=== PATIENT | female | born 1970 | race Asian ===

== ENCOUNTER 2017-05-10 17:22 | Emergency (ER) | payer OTHER ==
[2017-05-10 20:16] LABS: Basophils % (Auto) 0.6 % (0.0-1.8); Eosinophils % (Auto) 2.1 % (0.0-4.3); Hematocrit 37.2 % (30.3-42.9); Hemoglobin 12.2 gm/dl (10.1-14.3); Mean Corpuscular HGB Conc 33 % (30-34); Mean Corpuscular Hemoglobin 30 pg (28-32); Mean Corpuscular Volume 92 fl (79-97); Platelet Count 167 K/mm3 (140-440); Red Blood Count 4.03 M/mm3 (3.65-5.03); Red Cell Distribution Width 14.7 % (13.2-15.2); White Blood Count 5.1 K/mm3 (4.5-11.0)
[2017-05-10 20:25] LABS: INR 0.94 (0.87-1.13)
[2017-05-10 20:26] LABS: Partial Thromboplastin Time 28.7 Sec. (24.2-36.6)
[2017-05-10 20:38] LABS: Alanine Aminotransferase 28 units/L (7-56); Albumin 4.3 g/dL (3.9-5); Albumin/Globulin Ratio 1.4 %; Alkaline Phosphatase 79 units/L (35-129); Anion Gap 18 mmol/L; BUN/Creatinine Ratio 15.71; Blood Urea Nitrogen 11 mg/dL (7-17); Calcium 9.4 mg/dL (8.4-10.2); Carbon Dioxide 26 mmol/L (22-30); Chloride 100.3 mmol/L (98-107); Glucose 99 mg/dL (65-100); Lipase 25 units/L (13-60); Potassium 3.8 mmol/L (3.6-5.0); Sodium 140 mmol/L (137-145); Total Protein 7.3 g/dL (6.3-8.2)
[2017-05-11] MEDS ORDERED: PERCOCET 5/325 PO ONE (07:26)
--- NOTE | 2017-05-11 07:30 | Emergency Department Report ---
HPI - General Chief Complaint: Abdominal Pain Time Seen by Provider: 05/11/17 06:52 - HPI HPI: This is a 46-year-old -[place] female presents to the emergency department with complaint of acute on chronic abdominal pain. Patient says that her abdomen is never been right since she had surgery back in 2014 that included a cholecystectomy, common bile duct removal and some type of pancreatic surgery. However for the past month patient says that she has been having pain with eating so she limits her self to about 1 meal per day and very small amounts. She went to see her [employer] consultant, Dr. Delarosa, last week and had a CT scan on Wednesday but says she has not received the results yet. She came into the emergency department today as she says she's been having some diarrhea with some blood in it. She otherwise has a past medical history of hypertension. She is not taken anything for symptoms prior to presentation. No recent travel or sick contacts at home. ED Past Medical Hx - Past Medical History Hx Hypertension: Yes Hx Asthma: No Hx HIV: No - Surgical History Hx Cholecystectomy: Yes Additional Surgical History: common bile duct remove, pancreatic surgery - Social History Smoking Status: Current Every Day Smoker Substance Use Type: None - Medications Home Medications: Home Medications Medication Instructions Recorded Confirmed Last Taken Type Inderal 60 mg PO DAILY 04/26/15 04/26/15 Unknown History PROzac 60 mg PO DAILY 04/26/15 04/26/15 Unknown History clonazePAM 1 mg PO DAILY 04/26/15 04/26/15 Unknown History HYDROcodone/APAP 5-325 [[place] 1 each PO Q6HR PRN #8 tablet 05/11/17 Unknown Rx 5/325] ED Review of Systems ROS: Stated complaint: RETCAL BLEEDING Other details as noted in HPI Comment: All other systems reviewed and negative Constitutional: denies: chills, fever Eyes: denies: eye pain, eye discharge, vision change ENT: denies: ear pain, throat pain Respiratory: denies: cough, shortness of breath, wheezing Cardiovascular: denies: chest pain, palpitations Gastrointestinal: abdominal pain, diarrhea. denies: vomiting, melena Genitourinary: denies: urgency, dysuria, discharge Musculoskeletal: denies: back pain, joint swelling, arthralgia Skin: denies: rash, lesions Neurological: denies: headache, weakness, paresthesias Physical Exam - Physical Exam Vital Signs: Vital Signs 05/10/17 05/11/17 05/11/17 19:45 00:38 06:44 Temperature 98.7 F 98.4 F Pulse Rate 78 73 75 Respiratory 18 18 17 Rate Blood Pressure 120/73 132/84 O2 Sat by Pulse 100 100 99 Oximetry Physical Exam: GENERAL: The patient is well-developed well-nourished. HEENT: Normocephalic. Atraumatic. Extraocular motions are intact. Patient has moist mucous membranes. Pupils equal reactive to light bilaterally. NECK: Supple. Trachea is midline. CHEST/LUNGS: Clear to auscultation. There is no respiratory distress noted. HEART/CARDIOVASCULAR: Regular. There is no tachycardia. There is no gallop rub or murmur. ABDOMEN: Abdomen is soft. There is some tenderness to palpation to the upper quadrants of the abdomen. No guarding rebound tenderness. Patient has normal bowel sounds. There is no abdominal distention. SKIN: Skin is warm and dry. RECTAL: There is nonthrombosed external hemorrhoid at about 5 o'clock position. No gross blood. Stool was negative on guaiac testing. NEURO: The patient is awake, alert, and oriented. The patient is cooperative. The patient has no focal neurologic deficits. The patient has normal speech. MUSCULOSKELETAL: There is no tenderness or deformity. There is no limitation range of motion. There is no evidence of acute injury. ED Course Vital Signs 05/10/17 05/11/17 05/11/17 19:45 00:38 06:44 Temperature 98.7 F 98.4 F Pulse Rate 78 73 75 Respiratory 18 18 17 Rate Blood Pressure 120/73 132/84 O2 Sat by Pulse 100 100 99 Oximetry ED Medical Decision Making - Lab Data Result diagrams: 05/10/17 19:55 05/10/17 19:55 - Radiology Data Radiology results: report reviewed, image reviewed interpreted by me: Abdominal x-ray shows nonspecific nonobstructive bowel gas. Abdominal ultrasound shows hepatic steatosis - Medical Decision Making 46-year-old female presents with acute on chronic abdominal pain but also some recent diarrhea with some blood in the stool. Vital signs stable throughout her ED course. The labs are unremarkable including no leukocytosis and normal belly labs that include bilirubin, lipase and LFTs. Urinalysis does not show any urinary tract infection and the patient is not . Abdominal x-ray does not show any acute process. Abdominal ultrasound shows hepatic steatosis but otherwise no acute process. I spoke with Dr. Delarosa at [facility] and while they do not have the results of the CT scan, there comfortable with the patient following up outpatient with them in the next few days. Patient was given some pain control while in the emergency department and otherwise appears stable for discharge home at this time. She was given the information to follow up with [facility] and some small amount of pain medication. She will return to the ER with any worsening of her symptoms or any acute distress. Critical Care Time: No Critical care attestation.: If time is entered above; I have spent that time in minutes in the direct care of this critically ill patient, excluding procedure time. ED Disposition Clinical Impression: Rectal bleeding Abdominal pain Qualifiers: Abdominal location: upper abdomen, unspecified Qualified Code(s): R10.10 - Upper abdominal pain, unspecified Disposition: - TO HOME OR SELFCARE Is pt being admited?: No Condition: Stable Instructions: Rectal Bleeding (ED), Abdominal Pain (ED) Additional Instructions: Please follow-up with your primary care physician in the next few days. Please follow-up with [facility] in the next few days as well. Return to the emergency department with any worsening of your symptoms or any acute distress. You've been prescribed a medication that is sedating. Therefore this medication cannot be mixed with alcohol, or taken prior to driving, working, or being responsible for children. Prescriptions: HYDROcodone/APAP 5-325 [[place] 5/325] 1 each PO Q6HR PRN #8 tablet PRN Reason: Pain Referrals: PRIMARY CAREMD [Primary Care Provider] - 3-5 Days JOSELUIS DELAROSA MD [Staff Physician] - [facility] Time of Disposition: 09:58
--- NOTE | 2017-05-11 07:54 | XRay Report ---
ABDOMEN, 2 views: History: Abdominal pain. No comparison. There are multiple surgical clips in the epigastric region and right paraspinal region, correlate with surgical history. Supine and upright views of the abdomen demonstrate a few scattered small air-fluid levels throughout the abdomen. No dilated bowel, free air or pathologic calcifications. The lung bases are clear. Heart size is normal. IMPRESSION: No acute abdominal process is appreciated.
--- NOTE | 2017-05-11 09:07 | Ultrasound Report ---
Abdominal ultrasound. History: Abdominal pain. Findings: The gallbladder has been removed. There is generalized increased echogenicity of the hepatic parenchyma with no focal abnormalities. The common bile duct is normal in caliber. The kidneys are normal in size and configuration with no evidence of mass or hydronephrosis. The spleen is normal. The pancreas is not well imaged but demonstrates no significant findings. Impression: Hepatic steatosis. Status post cholecystectomy.
[2017-05-11 09:48] LABS: Bacteria,Urine 1+ /HPF (Negative); Bilirubin,Urine NEG (Negative); Blood,Urine NEG (Negative); Ketones,Urine NEG (Negative); Leukocyte Esterase,Urine NEG (Negative); Mucus,Urine 3+ /HPF; Nitrite,Urine NEG (Negative); Protein,Urine <15 mg/dL mg/dL (Negative); Urobilinogen,Urine < 2.0 mg/dL (<2.0)
[2017-05-11 09:59] VITALS: BP 122/72
== END 2017-05-11 10:15 | disposition home or self-care (01) ==
LOC: ED 17:22
DX: K62.5 Hemorrhage of anus and rectum (principal); R10.10 Upper abdominal pain, unspecified; I10 Essential (primary) hypertension; F17.200 Nicotine dependence, unspecified, uncomplicated
CPT/HCPCS: 36415; 74020; 76700; 80053; 81001; 83690; 84703; 85025; 85610; 85730; 86850; 86900; 86901; 93005; 93010

== ENCOUNTER 2017-09-08 14:37 | Outpatient (CLI) | payer OTHER ==
--- NOTE | 2017-09-08 15:48 | Mammography Report ---
Bilateral mammogram: No previous studies available for comparison. CAD study utilized. Findings: Predominance of adipose tissue bilaterally. Focal asymmetry upper anterior right breast. No microcalcification. Benign axillary nodes. Impression: Focal asymmetry upper anterior right breast. Recommend tomosynethesis. BI-RADS CATEGORY: 0 = Needs additional imaging evaluation ACR BI-RADS MAMMOGRAPHIC CODES: 0 = Needs additional imaging evaluation; 1 = Negative; 2 = Benign; 3 = Probably benign; 4 = Suspicious; 5 = Malignant; 6 = Known biopsy-proven malignancy COMMENT: 1. Dense breast tissue, i.e., adenosis, fibrocystic changes, etc., may obscure an underlying neoplasm. 2. Approximately 10% of cancers are not detected with mammography. 3. A negative mammography report should not delay biopsy if a clinically suspicious mass is present. COMMENT: Patient follow-up letters are generated in [employer].
== END 2017-09-08 14:38 | disposition home or self-care (01) ==
LOC: MAMMO 14:37
PROVIDERS: ATTEND Obstetrics & Gynecology
DX: Z12.31 Encounter for screening mammogram for malignant neoplasm of breast (principal)
CPT/HCPCS: 77067; G0202

== ENCOUNTER 2020-11-21 08:26 | Outpatient (CLI) | payer OTHER ==
[2020-11-21 09:48] LABS: Blood Urea Nitrogen 15 mg/dL (7-17)
--- NOTE | 2020-11-21 13:50 | Cat Scan Report ---
CTA abdomen and pelvis with contrast INDICATION : CELIAC ARTERY COMPRESSION SYNDROME. TECHNIQUE: Axial imaging performed through the abdomen and pelvis, with contrast bolus timing set to maximize opacification of the aorta. 3-plane MIP reformatted images were obtained. All CT scans at this location are performed using CT dose reduction for ALARA by means of automated exposure control. 100 mL of intravenous contrast administered. COMPARISON: Abdominal ultrasound from 05/11/2017 FINDINGS: Angiographic findings: Contrast bolus timing is adequate. The abdominal aorta and branch vessels are widely patent with no significant atherosclerotic disease identified. There are 2 renal arteries on t he right and 3 on the left. Otherwise normal branch anatomy. The celiac axis does demonstrate a J-shaped configuration (although gentle curvature without abrupt a ngulation); however, there is no significant narrowing or poststenotic dilatation. No prominent colla teral vessels are identified. The median arcuate ligament is also not significantly thickened. Non-angiographic findings: Lungs/bones: There is minimal right basilar atelectasis with otherwise clear lungs. Degenerative antelmo nges are present throughout the spine and pelvis with no acute osseous abnormality identified. Abdomen/pelvis: The liver contains a small cyst in the anterior segment. There is pneumobilia likely reflecting papillotomy change in this patient who has had prior cholecystectomy. The spleen, pancrea s, adrenals, and right kidney appear unremarkable for arterial phase technique. There are small simpl e cysts in the left kidney. The proximal GI tract is unremarkable. The urinary bladder and reproductive organs are unremarkable with trace pelvic free fluid and no acut e colonic abnormality. IMPRESSION: 1. Vascular findings as outlined above without convincing evidence of median arcuate ligament syndro me by CT. 2. Incidental findings as above. Signer Name: Jossue Pond MD Signed: 11/21/2020 1:46 PM Workstation Name: [id number]
== END 2020-11-21 08:27 | disposition home or self-care (01) ==
LOC: CT 08:26
PROVIDERS: ATTEND Radiology Diagnostic Radiology
DX: N28.1 Cyst of kidney, acquired (principal); K76.89 Other specified diseases of liver; I77.4 Celiac artery compression syndrome
CPT/HCPCS: 36415; 74174; 82565; 84520; Q9967